=== PATIENT | female | born 1950 | race Caucasian/White ===

== ENCOUNTER 2018-08-26 16:10 | Inpatient (IN) | payer MEDICARE, MEDICAID ==
[~2018-08-26] VITALS: Ht 167.6 cm; Wt 63.0 kg
[2018-08-26] MEDS ORDERED: methylPREDNISolone sod succ 125mg/2ml vial IV ONE (16:35)
[2018-08-26] MEDS ORDERED: albuterol 2.5 MG/3 ML nebule NEB ONE (16:35)
[2018-08-26 17:29] LABS: ALANINE AMINOTRANSFERASE 15 U/L (12-78); ALKALINE PHOSPHATASE 178 IU/L (46-116); ANION GAP 13 (8-16); ASPARTATE AMINO TRANSFERASE 22 U/L (10-37); BILIRUBIN,TOTAL 0.3 MG/DL (0.1-1.0); BLOOD UREA NITROGEN 8 MG/DL (7-18); CALCIUM 9.1 MG/DL (8.5-10.1); CHLORIDE 90 MMOL/L (99-107); CREATININE 0.47 MG/DL (0.40-0.90); GLUCOSE 89 MG/DL (70-104); POTASSIUM 3.8 MMOL/L (3.5-5.1); PROTHROMBIN TIME 9.9 SECONDS (9.0-12.0); SODIUM 129 MMOL/L (135-145); eGFR > 90 ML/MIN
[2018-08-26 17:36] LABS: BASOPHILS % (AUTO) 0.5 % (0-1); EOSINOPHILS % (AUTO) 0.5 % (0-6); HEMATOCRIT 48.9 % (35.0-45.0); HEMOGLOBIN 15.9 g/dl (12.0-16.0); LYMPHOCYTES # (AUTO) 1.9 X10'3 (1.1-4.8); LYMPHOCYTES % (AUTO) 29.1 % (21-51); MEAN CORPUSCULAR HEMOGLOBIN 31.8 PG (27.0-31.0); MEAN CORPUSCULAR HGB CONC 32.5 % (33.0-36.5); MEAN PLATELET VOLUME 7.2 FL (7.4-10.4); MONOCYTES # (AUTO) 0.5 X10'3 (0-0.9); NEUTROPHILS % (AUTO) 61.9 % (42-75); PLATELET COUNT 324 X10'3 (140-440); RED BLOOD COUNT 4.99 X10'6 (4.20-5.60); RED CELL DISTRIBUTION WIDTH 12.4 % (11.5-14.5); WHITE BLOOD COUNT 6.4 X10'3 (4.5-11.0)
[2018-08-26] MEDS ORDERED: ipratropium/albuterol 3ml nebule NEB ONE (18:05)
--- NOTE | 2018-08-26 18:12 | NUR ---
RT will be here shortly
[2018-08-26] MEDS ORDERED: levoFLOXACIN-Levaquin 750MG/D5 150 ML IV STA (18:22)
[2018-08-26] MEDS ORDERED: dextrose 5%-1/2 normal saline 1,000 ML IV SCH (20:14)
[2018-08-26] MEDS ORDERED: mag hydrox/Alum hydrox/simeth 30ml oral suspension PO PRN (20:15)
[2018-08-26] MEDS ORDERED: dextrose 50%-water 50ml dispensing syringe IV PRN (20:15)
[2018-08-26] MEDS ORDERED: morphine 4 MG/ML inj SYRINge IV PRN ×2 (20:15)
[2018-08-26] MEDS ORDERED: cloNIDine 0.1 MG/24 HOUR patch (7 day patch) TD SCH (20:15)
[2018-08-26] MEDS ORDERED: metoclopramide 5 mg/ml inj IV PRN (20:15)
[2018-08-26] MEDS ORDERED: dicyclomine 10 MG capsule PO PRN (20:15)
[2018-08-26] MEDS ORDERED: loperamide 2mg capsule PO PRN ×2 (20:15)
[2018-08-26] MEDS ORDERED: acetaminophen 325mg tablet PO PRN (20:15)
[2018-08-26] MEDS ORDERED: ondansetron/PF 4mg/2ml inj IV PRN (20:15)
[2018-08-26] MEDS ORDERED: diphenhydrAMINE 50 mg/ml inj IV PRN (20:15)
[2018-08-26] MEDS ORDERED: haloperidol 5mg tablet PO PRN (20:15)
[2018-08-26] MEDS ORDERED: acetaminophen 650mg rectal suppository RC PRN (20:15)
[2018-08-26] MEDS ORDERED: magnesium hydroxide 30ml (MOM) UD suspension PO PRN (20:15)
[2018-08-26] MEDS ORDERED: bisacodyl 10mg suppository rectal RC PRN (20:15)
[2018-08-26] MEDS ORDERED: diphenhydrAMINE 25mg capsule PO PRN (20:15)
[2018-08-26] MEDS ORDERED: haloperidol lactate 5mg/ml inj IM PRN (20:15)
[2018-08-26 20:42] LABS: HEMOGLOBIN A1C 4.8 % (4.5-6.2)
[2018-08-26 20:46] LABS: D-DIMER 0.66 MG/L FEU (0-0.50); PARTIAL THROMBOPLASTIN TIME 35 SECONDS (22-32)
[2018-08-26 20:52] LABS: MAGNESIUM 1.8 MG/DL (1.5-2.4); PHOSPHORUS 3.7 MG/DL (2.3-4.5); TROPONIN I < 0.04 NG/ML (0.0-0.05)
[2018-08-26] MEDS ORDERED: temazepam 15mg capsule PO PRN (21:00)
[2018-08-26 22:29] LABS: CLARITY,URINE SLIGHTLY CLOUDY (Clear); COLOR,URINE YELLOW (Yellow); GLUCOSE, URINE 100 mg/dl (Neg); KETONES,URINE TRACE mg/dl (Neg); LEUKOCYTE ESTERASE ,URINE NEGATIVE (Neg); NITRITES, URINE POSITIVE (Neg); OCCULT BLOOD,URINE MODERATE (Neg); PH,URINE 5.5 (4.8-8.0); PROTEIN,URINE TRACE mg/dl (Neg); UROBILINOGEN,URINE 0.2 E.U/dL (0.2-1.0)
[2018-08-26 22:36] LABS: UA COLLECTION TYPE VOIDED
[2018-08-26 22:38] LABS: BACTERIA,URINE 4+ /HPF (Neg); MUCUS STRANDS MODERATE /LPF (Neg); RBC,URINE 0-2 /HPF (0-2); SQUAMOUS EPITHELIAL CELL,UR MANY /LPF (FEW); WBC,URINE 0-4 /HPF (0-4)
[2018-08-26 22:40] LABS: URINE AMPHETAMINE SCREEN NEGATIVE (Neg); URINE BARBITUATE SCREEN NEGATIVE (Neg); URINE BENZODIAZEPINES SCREEN NEGATIVE (Neg); URINE CANNABINOID SCREEN NEGATIVE (Neg); URINE COCAINE SCREEN NEGATIVE (Neg); URINE METHADONE SCREEN NEGATIVE (Neg); URINE OPIATE SCREEN POSITIVE (Neg); URINE PHENCYCLIDINE SCREEN NEGATIVE (Neg)
[2018-08-26] MEDS: famotidine 20mg tablet PO SCH (22:51)
[2018-08-26] MEDS: normal saline 1000ml 1,000 ML IV SCH (22:53)
[2018-08-26 23:30] VITALS: BP 180/94
[2018-08-27 02:01] VITALS: BP 179/95
[2018-08-27] MEDS ORDERED: hydrALAZINE 20mg/ml inj. IV PRN (03:35)
[2018-08-27 04:00] VITALS: BP 139/75
[2018-08-27] MEDS ORDERED: NO HOME MEDS (05:06)
[2018-08-27 05:54] LABS: BASOPHILS % (AUTO) 0.1 % (0-1); EOSINOPHILS % (AUTO) 0.1 % (0-6); HEMATOCRIT 42.7 % (35.0-45.0); HEMOGLOBIN 14.1 g/dl (12.0-16.0); LYMPHOCYTES # (AUTO) 0.7 X10'3 (1.1-4.8); LYMPHOCYTES % (AUTO) 23.1 % (21-51); MEAN CORPUSCULAR HEMOGLOBIN 32.5 PG (27.0-31.0); MEAN CORPUSCULAR VOLUME 98.5 FL (78-98); MEAN PLATELET VOLUME 7.2 FL (7.4-10.4); MONOCYTES # (AUTO) 0.1 X10'3 (0-0.9); NEUTROPHILS # (AUTO) 2.2 X10'3 (1.8-7.7); NEUTROPHILS % (AUTO) 73.7 % (42-75); PLATELET COUNT 316 X10'3 (140-440); RED BLOOD COUNT 4.33 X10'6 (4.20-5.60); RED CELL DISTRIBUTION WIDTH 12.1 % (11.5-14.5)
[2018-08-27 06:01] LABS: ALANINE AMINOTRANSFERASE 13 U/L (12-78); ALBUMIN 3.2 G/DL (3.4-5.0); ALBUMIN/GLOBULIN RATIO 0.9 (1.1-1.5); ALKALINE PHOSPHATASE 149 IU/L (46-116); ANION GAP 7 (8-16); ASPARTATE AMINO TRANSFERASE 15 U/L (10-37); BILIRUBIN,TOTAL 0.3 MG/DL (0.1-1.0); BLOOD UREA NITROGEN 8 MG/DL (7-18); BUN/CREATININE RATIO 16.3 (6.6-38.0); CALCIUM 8.7 MG/DL (8.5-10.1); CHLORIDE 95 MMOL/L (99-107); CHOL/HDL RATIO 1.9 (0.00-4.99); CHOLESTEROL 151 MG/DL (0-200); CREATININE 0.49 MG/DL (0.40-0.90); GLUCOSE 139 MG/DL (70-104); HDL CHOLESTEROL 81 MG/DL (35-60); LDL CHOLESTEROL 59 MG/DL (50-100); POTASSIUM 4.5 MMOL/L (3.5-5.1); SODIUM 130 MMOL/L (135-145); TOTAL CARBON DIOXIDE 27.7 MMOL/L (24-32); TOTAL PROTEIN 6.9 G/DL (6.4-8.2); TRIGLYCERIDES 30 MG/DL (20-135); eGFR > 90 ML/MIN
--- NOTE | 2018-08-27 06:35 | NUR ---
Problems reprioritized. Patient report given, questions answered & plan of care reviewed with Estrellita WOOD. Pt currently sleeping comfortably on her left side with simple mask o2 @ 3L. Pt has no signs of distress.
[2018-08-27 07:00] VITALS: BP 139/75
[2018-08-27] MEDS ORDERED: folic acid inj. 2 MG, thiamine inj. 100 MG in dextrose 5% water 500ml 500 ML IV SCH (08:00)
[2018-08-27] MEDS: multivitamin oral liquid (Certavite) 5ml cup PO SCH (09:41)
[2018-08-27] MEDS: levoFLOXACIN-Levaquin 500mg/D5 100 ML IV SCH (09:41)
[2018-08-27] MEDS: docusate sod 100mg capsule PO SCH ×2 (09:41→20:23)
[2018-08-27] MEDS: heparin, porcine 5000 units/ml vial SQ SCH ×2 (09:42→20:24)
[2018-08-27] MEDS: nicotine 21mg patch - 24 hr TD SCH (09:42)
[2018-08-27] MEDS: normal saline 1000ml 1,000 ML IV SCH ×2 (09:44→20:21)
[2018-08-27 11:00] VITALS: BP 139/75
[2018-08-27] MEDS: predniSONE 20 mg tablet PO SCH (12:05)
[2018-08-27] MEDS: ipratropium/albuterol 3ml nebule NEB PRN (15:36)
--- NOTE | 2018-08-27 18:51 | NUR ---
Patient in room [facility]. I have received report from Estrellita WOOD and had the opportunity to ask questions and assume patient care. Pt sitting up in bed eating dinner with NC running @ 3L. Pt has no signs of distress. Will continue to monitor.
[2018-08-27 20:00] VITALS: BP 162/85
[2018-08-27] MEDS: famotidine 20mg tablet PO SCH (20:23)
[2018-08-27] MEDS: acetaminophen 325mg tablet PO PRN (20:23)
[2018-08-28] VITALS: BP 160/77
[2018-08-28] MEDS: cyclobenzaprine 10mg tablet PO PRN ×3 (00:29→20:41)
[2018-08-28] MEDS: normal saline 1000ml 1,000 ML IV SCH ×3 (02:23→20:42)
[2018-08-28] MEDS: acetaminophen 325mg tablet PO PRN ×2 (04:50→20:40)
[2018-08-28 06:04] LABS: BASOPHILS # (AUTO) 0.1 X10'3 (0-0.2); BASOPHILS % (AUTO) 1.6 % (0-1); EOSINOPHILS % (AUTO) 0.2 % (0-6); HEMATOCRIT 41.7 % (35.0-45.0); HEMOGLOBIN 14.1 g/dl (12.0-16.0); LYMPHOCYTES # (AUTO) 2.3 X10'3 (1.1-4.8); LYMPHOCYTES % (AUTO) 31.4 % (21-51); MEAN CORPUSCULAR HEMOGLOBIN 33.3 PG (27.0-31.0); MEAN CORPUSCULAR HGB CONC 33.8 % (33.0-36.5); MEAN CORPUSCULAR VOLUME 98.5 FL (78-98); MEAN PLATELET VOLUME 7.4 FL (7.4-10.4); MONOCYTES # (AUTO) 0.9 X10'3 (0-0.9); MONOCYTES % (AUTO) 12.8 % (2-12); NEUTROPHILS # (AUTO) 3.9 X10'3 (1.8-7.7); PLATELET COUNT 262 X10'3 (140-440); RED BLOOD COUNT 4.24 X10'6 (4.20-5.60); RED CELL DISTRIBUTION WIDTH 12.2 % (11.5-14.5); WHITE BLOOD COUNT 7.2 X10'3 (4.5-11.0)
[2018-08-28 06:16] LABS: ANION GAP 6 (8-16); BLOOD UREA NITROGEN 6 MG/DL (7-18); BUN/CREATININE RATIO 10.7 (6.6-38.0); CHLORIDE 96 MMOL/L (99-107); CREATININE 0.56 MG/DL (0.40-0.90); GLUCOSE 102 MG/DL (70-104); POTASSIUM 4.1 MMOL/L (3.5-5.1); SODIUM 130 MMOL/L (135-145); TOTAL CARBON DIOXIDE 27.8 MMOL/L (24-32)
[2018-08-28 06:17] LABS: ALANINE AMINOTRANSFERASE 14 U/L (12-78); ALBUMIN 3.2 G/DL (3.4-5.0); ALBUMIN/GLOBULIN RATIO 0.9 (1.1-1.5); ALKALINE PHOSPHATASE 136 IU/L (46-116); ASPARTATE AMINO TRANSFERASE 15 U/L (10-37); BILIRUBIN,TOTAL 0.4 MG/DL (0.1-1.0); CALCIUM 8.8 MG/DL (8.5-10.1); TOTAL PROTEIN 6.6 G/DL (6.4-8.2); eGFR > 90 ML/MIN
--- NOTE | 2018-08-28 06:40 | NUR ---
Patient in room [facility]. I have received report from NINA Victor and had the opportunity to ask questions and assume patient care.
--- NOTE | 2018-08-28 06:40 | NUR ---
Problems reprioritized. Patient report given, questions answered & plan of care reviewed with Lola WOOD. Pt currently sitting up in bed talking ro her roommate. No signs of distress.
[2018-08-28 07:30] VITALS: BP 153/79
[2018-08-28] MEDS: nicotine 21mg patch - 24 hr TD SCH ×2 (08:00→10:06)
[2018-08-28] MEDS: docusate sod 100mg capsule PO SCH ×2 (08:00→20:00)
[2018-08-28] MEDS: folic acid 1mg tablet PO SCH (10:04)
[2018-08-28] MEDS: levoFLOXACIN-Levaquin 500mg/D5 100 ML IV SCH (10:04)
[2018-08-28] MEDS: multivitamin oral liquid (Certavite) 5ml cup PO SCH (10:04)
[2018-08-28] MEDS: thiamine 100mg tablet PO SCH (10:04)
[2018-08-28] MEDS: heparin, porcine 5000 units/ml vial SQ SCH ×2 (10:05→20:40)
[2018-08-28] MEDS: predniSONE 20 mg tablet PO SCH (10:05)
[2018-08-28 11:00] VITALS: BP 156/81
[2018-08-28 18:00] VITALS: BP_SYST 125; BP_SYST 179; BP_DIAS 63; BP_DIAS 92
--- NOTE | 2018-08-28 18:57 | NUR ---
Problems reprioritized. Patient report given, questions answered & plan of care reviewed with NINA Simpson.
--- NOTE | 2018-08-28 18:58 | NUR ---
Patient in room [facility]. I have received report from NINA Davila and had the opportunity to ask questions and assume patient care.
[2018-08-28] MEDS ORDERED: LORazepam 1 MG tablet PO PRN (20:15)
[2018-08-28] MEDS: lactobacillus rhamnosus 10,000 MMU CELLS/CAPSULE PO SCH (20:40)
[2018-08-28] MEDS: famotidine 20mg tablet PO SCH (20:41)
[2018-08-28] MEDS: ipratropium/albuterol 3ml nebule NEB PRN (20:57)
[2018-08-29] VITALS: BP 143/81
--- NOTE | 2018-08-29 06:27 | NUR ---
Problems reprioritized. Patient report given, questions answered & plan of care reviewed with NINA Macias.
--- NOTE | 2018-08-29 06:30 | NUR ---
Patient in room [facility]. I have received report from NINA Simpson and had the opportunity to ask questions and assume patient care.
[2018-08-29 07:05] LABS: ALANINE AMINOTRANSFERASE 14 U/L (12-78); ALBUMIN 3.4 G/DL (3.4-5.0); ALBUMIN/GLOBULIN RATIO 0.9 (1.1-1.5); ALKALINE PHOSPHATASE 139 IU/L (46-116); ANION GAP 9 (8-16); ASPARTATE AMINO TRANSFERASE 17 U/L (10-37); BILIRUBIN,TOTAL 0.3 MG/DL (0.1-1.0); BLOOD UREA NITROGEN 6 MG/DL (7-18); BUN/CREATININE RATIO 11.8 (6.6-38.0); CALCIUM 8.9 MG/DL (8.5-10.1); CHLORIDE 97 MMOL/L (99-107); CREATININE 0.51 MG/DL (0.40-0.90); GLUCOSE 84 MG/DL (70-104); SODIUM 136 MMOL/L (135-145); TOTAL PROTEIN 7.2 G/DL (6.4-8.2); eGFR > 90 ML/MIN
[2018-08-29 07:08] LABS: POTASSIUM 3.7 MMOL/L (3.5-5.1)
[2018-08-29 07:10] LABS: BASOPHILS # (AUTO) 0.2 X10'3 (0-0.2); BASOPHILS % (AUTO) 2.2 % (0-1); EOSINOPHILS % (AUTO) 0.1 % (0-6); HEMATOCRIT 42.6 % (35.0-45.0); HEMOGLOBIN 14.5 g/dl (12.0-16.0); LYMPHOCYTES # (AUTO) 3.2 X10'3 (1.1-4.8); LYMPHOCYTES % (AUTO) 36.1 % (21-51); MEAN CORPUSCULAR HEMOGLOBIN 33.1 PG (27.0-31.0); MEAN CORPUSCULAR VOLUME 97.6 FL (78-98); MEAN PLATELET VOLUME 7.4 FL (7.4-10.4); MONOCYTES # (AUTO) 1.4 X10'3 (0-0.9); MONOCYTES % (AUTO) 15.2 % (2-12); NEUTROPHILS # (AUTO) 4.2 X10'3 (1.8-7.7); NEUTROPHILS % (AUTO) 46.4 % (42-75); PLATELET COUNT 316 X10'3 (140-440); RED BLOOD COUNT 4.37 X10'6 (4.20-5.60); RED CELL DISTRIBUTION WIDTH 13.1 % (11.5-14.5); WHITE BLOOD COUNT 8.9 X10'3 (4.5-11.0)
[2018-08-29] MEDS: levoFLOXACIN-Levaquin 500mg/D5 100 ML IV SCH (07:30)
[2018-08-29] MEDS: folic acid 1mg tablet PO SCH (07:30)
[2018-08-29] MEDS: thiamine 100mg tablet PO SCH (07:31)
[2018-08-29] MEDS: predniSONE 20 mg tablet PO SCH (07:31)
[2018-08-29] MEDS: lactobacillus rhamnosus 10,000 MMU CELLS/CAPSULE PO SCH ×2 (07:31→20:10)
[2018-08-29] MEDS: heparin, porcine 5000 units/ml vial SQ SCH ×2 (07:31→20:11)
[2018-08-29] MEDS: multivitamin oral liquid (Certavite) 5ml cup PO SCH (07:31)
[2018-08-29] MEDS: docusate sod 100mg capsule PO SCH ×2 (07:32→20:00)
[2018-08-29] MEDS: nicotine 21mg patch - 24 hr TD SCH (07:37)
[2018-08-29] MEDS: ipratropium/albuterol 3ml nebule NEB PRN (07:59)
[2018-08-29 08:00] VITALS: BP 145/88
[2018-08-29] MEDS: cyclobenzaprine 10mg tablet PO PRN ×2 (09:30→20:11)
[2018-08-29] MEDS: acetaminophen 325mg tablet PO PRN ×2 (09:31→20:13)
[2018-08-29 11:00] VITALS: BP 146/92
[2018-08-29] MEDS: ipratropium/albuterol 3ml nebule NEB SCH ×3 (12:20→19:37)
[2018-08-29 18:00] VITALS: BP 132/74
--- NOTE | 2018-08-29 18:22 | NUR ---
Problems reprioritized. Patient report given, questions answered & plan of care reviewed with NINA Simpson.
--- NOTE | 2018-08-29 18:23 | NUR ---
Patient in room [facility]. I have received report from NINA Macias and had the opportunity to ask questions and assume patient care.
[2018-08-29] MEDS: famotidine 20mg tablet PO SCH (20:11)
[2018-08-30] VITALS: BP 124/66
[2018-08-30] MEDS: ipratropium/albuterol 3ml nebule NEB SCH ×7 (01:23→23:37)
--- NOTE | 2018-08-30 06:04 | NUR ---
Problems reprioritized. Patient report given, questions answered & plan of care reviewed with NINA Johns.
[2018-08-30 06:05] LABS: ALANINE AMINOTRANSFERASE 13 U/L (12-78); ALBUMIN 3.2 G/DL (3.4-5.0); ALKALINE PHOSPHATASE 121 IU/L (46-116); ANION GAP 9 (8-16); ASPARTATE AMINO TRANSFERASE 12 U/L (10-37); BILIRUBIN,TOTAL 0.3 MG/DL (0.1-1.0); BLOOD UREA NITROGEN 7 MG/DL (7-18); BUN/CREATININE RATIO 15.6 (6.6-38.0); CALCIUM 8.7 MG/DL (8.5-10.1); CHLORIDE 96 MMOL/L (99-107); CREATININE 0.45 MG/DL (0.40-0.90); GLUCOSE 99 MG/DL (70-104); POTASSIUM 3.2 MMOL/L (3.5-5.1); SODIUM 133 MMOL/L (135-145); TOTAL CARBON DIOXIDE 27.9 MMOL/L (24-32); TOTAL PROTEIN 6.5 G/DL (6.4-8.2); eGFR > 90 ML/MIN
--- NOTE | 2018-08-30 06:16 | NUR ---
Patient in room [facility]. I have received report from Willian WOOD and had the opportunity to ask questions and assume patient care.
[2018-08-30 06:29] LABS: BASOPHILS # (AUTO) 0.1 X10'3 (0-0.2); BASOPHILS % (AUTO) 1.3 % (0-1); EOSINOPHILS % (AUTO) 0.2 % (0-6); HEMATOCRIT 38.3 % (35.0-45.0); HEMOGLOBIN 12.6 g/dl (12.0-16.0); LYMPHOCYTES % (AUTO) 35.5 % (21-51); MEAN CORPUSCULAR HEMOGLOBIN 32.2 PG (27.0-31.0); MEAN CORPUSCULAR HGB CONC 33.1 % (33.0-36.5); MEAN CORPUSCULAR VOLUME 97.4 FL (78-98); MEAN PLATELET VOLUME 7.3 FL (7.4-10.4); MONOCYTES # (AUTO) 1.2 X10'3 (0-0.9); MONOCYTES % (AUTO) 13.7 % (2-12); NEUTROPHILS # (AUTO) 4.2 X10'3 (1.8-7.7); NEUTROPHILS % (AUTO) 49.3 % (42-75); PLATELET COUNT 301 X10'3 (140-440); RED BLOOD COUNT 3.93 X10'6 (4.20-5.60); RED CELL DISTRIBUTION WIDTH 13.1 % (11.5-14.5); WHITE BLOOD COUNT 8.6 X10'3 (4.5-11.0)
[2018-08-30 07:08] VITALS: BP 157/78
[2018-08-30] MEDS: nicotine 21mg patch - 24 hr TD SCH (07:48)
[2018-08-30] MEDS: docusate sod 100mg capsule PO SCH ×2 (08:00→19:15)
[2018-08-30] MEDS: multivitamin oral liquid (Certavite) 5ml cup PO SCH (08:09)
[2018-08-30] MEDS: thiamine 100mg tablet PO SCH (08:09)
[2018-08-30] MEDS: folic acid 1mg tablet PO SCH (08:10)
[2018-08-30] MEDS: predniSONE 20 mg tablet PO SCH (08:10)
[2018-08-30] MEDS: lactobacillus rhamnosus 10,000 MMU CELLS/CAPSULE PO SCH ×2 (08:10→19:13)
[2018-08-30] MEDS: heparin, porcine 5000 units/ml vial SQ SCH ×2 (08:11→19:14)
[2018-08-30] MEDS ORDERED: potassium Cl 40MEQ/NS 500ml 500 ML IV PRN ×2 (09:45)
[2018-08-30] MEDS ORDERED: potassium Cl 20 mEq SR tablet PO PRN ×2 (09:45)
[2018-08-30] MEDS: levoFLOXACIN 500mg tablet PO SCH (10:20)
[2018-08-30] MEDS: cyclobenzaprine 10mg tablet PO PRN ×2 (10:22→19:15)
[2018-08-30 11:13] VITALS: BP 147/60
--- NOTE | 2018-08-30 11:25 | NUR ---
Notified Dr. Flores by page that patient SBP has been elevated today, [id number] and 1100 147. Will continue to monitor.
--- NOTE | 2018-08-30 17:56 | NUR ---
Problems reprioritized. Patient report given, questions answered & plan of care reviewed with Marilin WOOD.
--- NOTE | 2018-08-30 18:41 | NUR ---
Patient in room [facility]. I have received report from Nat Wagner and had the opportunity to ask questions and assume patient care.
[2018-08-30 19:30] VITALS: BP 137/74
[2018-08-30] MEDS ORDERED: LORazepam 1 MG tablet PO PRN (20:15)
[2018-08-30] MEDS ORDERED: LORazepam 2 mg/ml vial IV PRN (20:15)
[2018-08-30] MEDS: famotidine 20mg tablet PO SCH (20:26)
[2018-08-30] MEDS: acetaminophen 325mg tablet PO PRN (20:29)
[2018-08-31 01:23] VITALS: BP 133/75
[2018-08-31] MEDS: ipratropium/albuterol 3ml nebule NEB SCH ×6 (03:28→23:59)
--- NOTE | 2018-08-31 06:14 | NUR ---
Patient in room [facility]. I have received report from Marilin WOOD and had the opportunity to ask questions and assume patient care.
--- NOTE | 2018-08-31 06:48 | NUR ---
Problems reprioritized. Patient report given, questions answered & plan of care reviewed with Nat Wagner.
[2018-08-31 07:53] VITALS: BP 162/81
[2018-08-31] MEDS: predniSONE 20 mg tablet PO SCH (07:55)
[2018-08-31] MEDS: folic acid 1mg tablet PO SCH (07:55)
[2018-08-31] MEDS: thiamine 100mg tablet PO SCH (07:55)
[2018-08-31] MEDS: multivitamin oral liquid (Certavite) 5ml cup PO SCH (07:55)
[2018-08-31] MEDS: cyclobenzaprine 10mg tablet PO PRN ×2 (07:55→19:55)
[2018-08-31] MEDS: lactobacillus rhamnosus 10,000 MMU CELLS/CAPSULE PO SCH ×2 (07:55→19:55)
[2018-08-31] MEDS: heparin, porcine 5000 units/ml vial SQ SCH ×2 (07:57→19:55)
[2018-08-31] MEDS: docusate sod 100mg capsule PO SCH ×2 (08:00→19:56)
[2018-08-31] MEDS: nicotine 21mg patch - 24 hr TD SCH (08:00)
[2018-08-31] MEDS: K and/or MAG REPLACEMENT MC SCH (08:00)
[2018-08-31 08:55] LABS: BASOPHILS # (AUTO) 0.1 X10'3 (0-0.2); BASOPHILS % (AUTO) 0.7 % (0-1); EOSINOPHILS % (AUTO) 0.6 % (0-6); HEMOGLOBIN 14.2 g/dl (12.0-16.0); LYMPHOCYTES # (AUTO) 2.6 X10'3 (1.1-4.8); LYMPHOCYTES % (AUTO) 30.7 % (21-51); MEAN CORPUSCULAR HEMOGLOBIN 32.2 PG (27.0-31.0); MEAN CORPUSCULAR VOLUME 97.7 FL (78-98); MEAN PLATELET VOLUME 6.8 FL (7.4-10.4); MONOCYTES # (AUTO) 1.2 X10'3 (0-0.9); MONOCYTES % (AUTO) 13.6 % (2-12); NEUTROPHILS # (AUTO) 4.6 X10'3 (1.8-7.7); NEUTROPHILS % (AUTO) 54.4 % (42-75); PLATELET COUNT 330 X10'3 (140-440); RED CELL DISTRIBUTION WIDTH 13.1 % (11.5-14.5); WHITE BLOOD COUNT 8.5 X10'3 (4.5-11.0)
[2018-08-31 09:27] LABS: ALANINE AMINOTRANSFERASE 16 U/L (12-78); ALBUMIN 3.4 G/DL (3.4-5.0); ALBUMIN/GLOBULIN RATIO 0.9 (1.1-1.5); ALKALINE PHOSPHATASE 135 IU/L (46-116); ANION GAP 11 (8-16); ASPARTATE AMINO TRANSFERASE 17 U/L (10-37); BILIRUBIN,TOTAL 0.3 MG/DL (0.1-1.0); BLOOD UREA NITROGEN 5 MG/DL (7-18); BUN/CREATININE RATIO 10.4 (6.6-38.0); CHLORIDE 95 MMOL/L (99-107); CREATININE 0.48 MG/DL (0.40-0.90); GLUCOSE 106 MG/DL (70-104); POTASSIUM 3.6 MMOL/L (3.5-5.1); SODIUM 134 MMOL/L (135-145); TOTAL CARBON DIOXIDE 28.5 MMOL/L (24-32); TOTAL PROTEIN 7.3 G/DL (6.4-8.2); eGFR > 90 ML/MIN
[2018-08-31 10:56] VITALS: BP 154/91
[2018-08-31] MEDS: levoFLOXACIN 500mg tablet PO SCH (11:36)
[2018-08-31] MEDS: amLODIPine 5mg tablet PO SCH (11:36)
[2018-08-31] MEDS: guaiFENesin ER 600mg tablet PO SCH ×2 (12:19→19:55)
[2018-08-31 18:30] VITALS: BP 112/61
[2018-08-31] MEDS: famotidine 20mg tablet PO SCH (20:05)
[2018-09-01] VITALS: BP 145/73
[2018-09-01] MEDS: ipratropium/albuterol 3ml nebule NEB SCH ×4 (03:42→15:00)
--- NOTE | 2018-09-01 06:41 | NUR ---
Problems reprioritized. Patient report given, questions answered & plan of care reviewed with NAVDEEP. Addendum: 09/01/18 at 0642 by Gilbert Gomez RN Amended: Links added.
[2018-09-01 07:14] VITALS: BP 130/77
[2018-09-01] MEDS: docusate sod 100mg capsule PO SCH (08:00)
[2018-09-01] MEDS: nicotine 21mg patch - 24 hr TD SCH (08:00)
[2018-09-01] MEDS: K and/or MAG REPLACEMENT MC SCH (08:00)
[2018-09-01] MEDS: multivitamin oral liquid (Certavite) 5ml cup PO SCH (08:44)
[2018-09-01] MEDS: guaiFENesin ER 600mg tablet PO SCH (08:44)
[2018-09-01] MEDS: cyclobenzaprine 10mg tablet PO PRN (08:44)
[2018-09-01] MEDS: thiamine 100mg tablet PO SCH (08:44)
[2018-09-01] MEDS: predniSONE 20 mg tablet PO SCH (08:44)
[2018-09-01] MEDS: amLODIPine 5mg tablet PO SCH (08:45)
[2018-09-01] MEDS: heparin, porcine 5000 units/ml vial SQ SCH (08:45)
[2018-09-01] MEDS: lactobacillus rhamnosus 10,000 MMU CELLS/CAPSULE PO SCH (08:45)
[2018-09-01] MEDS: folic acid 1mg tablet PO SCH (08:45)
--- NOTE | 2018-09-01 10:38 | NUR ---
no labs ordered for today
[2018-09-01 11:11] VITALS: BP 157/89
[2018-09-01] MEDS ORDERED: DOXY100C2 PO (11:26)
[2018-09-01] MEDS ORDERED: MULT1TAB74 PO (11:26)
[2018-09-01] MEDS ORDERED: ALBU8HFA PO (11:26)
[2018-09-01] MEDS ORDERED: AMLO5TAB4 PO (11:26)
[2018-09-01] MEDS ORDERED: PRED10TA23 PO (11:26)
[2018-09-01] MEDS ORDERED: ALB0.5UD IH (11:26)
[2018-09-01] MEDS ORDERED: FLUT1DIS4 INH (11:26)
--- NOTE | 2018-09-01 12:24 | NUR ---
O2 Sat at rest on room air: 94% If below 89%: Recovery O2 Sat at rest on ___LPM:___%:___% via (mask/nasal cannula, etc..) No further documentation is necessary. If O2 Sat did not drop below 89% on room air,ambulate patient on room air. O2 Sat while ambulating on room air:___% Recovery O2 Sat while ambulating on 3 LPM: 91% No further documentation is necessary. If patient does not drop below 89% while ambulating, he/she does not qualify for home O2.
--- NOTE | 2018-09-01 12:46 | NUR ---
Initial: Pt admitted with acute resp failure, COPD exacerbation, and acute bronchitis. Per on oxygen and steroids for tx per MD notes. Pt currently on regular diet with documented PO intake 75-100% meeting nutrient needs. Pt currently receiving MVI, Thiamine, and Folic acid d/t hx Etoh abuse. Pt with no documented edema or wounds. LBM 08/31. Will continue to follow. Recommendations: 1) Continue with regular diet 2) Continue with MVI, Thiamine, Folic acid given hx Etoh abuse 3) Wt per rx Addendum: 09/01/18 at [address] Amended: Links added.
[2018-09-01] MEDS: levoFLOXACIN 500mg tablet PO SCH (12:57)
--- NOTE | 2018-09-01 13:52 | NUR ---
O2 Sat at rest on room air: 94% If below 89%: Recovery O2 Sat at rest on ___LPM:___%:___% via (mask/nasal cannula, etc..) No further documentation is necessary. If O2 Sat did not drop below 89% on room air,ambulate patient on room air. O2 Sat while ambulating on room air: 87 % Recovery O2 Sat while ambulating on 92 LPM: 92% No further documentation is necessary. If patient does not drop below 89% while ambulating, he/she does not qualify for home O2.
--- NOTE | 2018-09-01 17:00 | NUR ---
Patients discharge instructions reviewed with patient and patient verbalized understanding. Patients Oxygen and nebulizer was delivered to bedside. [facility]. Patients IV dc'd cannula intact. Patient has all belongings and was taken to vehicle via wheelchair by ANTWON Robertson.
== END 2018-09-01 16:49 | disposition home health service (06) | DRG 189 ==
LOC: ER 16:10 → SUR 3N 20:14 → CMPBEDREQ 22:15
PROVIDERS: ADMIT Family Medicine; ATTEND Family Medicine
DX: J96.01 Acute respiratory failure with hypoxia (principal); J44.1 Chronic obstructive pulmonary disease with (acute) exacerbation; E87.1 Hypo-osmolality and hyponatremia; J44.0 Chronic obstructive pulmonary disease with (acute) lower respiratory infection; E87.6 Hypokalemia; F17.210 Nicotine dependence, cigarettes, uncomplicated; E86.0 Dehydration; I10 Essential (primary) hypertension; F10.20 Alcohol dependence, uncomplicated; J20.9 Acute bronchitis, unspecified; Z23 Encounter for immunization; Z71.6 Tobacco abuse counseling; Z71.41 Alcohol abuse counseling and surveillance of alcoholic
CPT/HCPCS: 36415; 71045; 71046; 80053; 80061; 80305; 81001; 83036; 83735; 83880; 84100; 84443; 84484; 85025; 85379; 85610; 85730; 87070; 87502; 87503; 93005; 94640; 94667; 94668; 94760; 96365; 96375; 99285; G0378; J1644; J1956; J2405; J2930; J3411; J3490; J7030; J7060; J7512